=== PATIENT | male | born 1960 | race Caucasian/White ===

== ENCOUNTER 2016-12-28 12:20 | Inpatient (IN) ==
[2016-12-28] MEDS ORDERED: NS 1,000 ML ONE ×2 (12:24→14:00)
[2016-12-28] MEDS ORDERED: NS 1,000 ML IV PRN (12:26)
[2016-12-28] MEDS ORDERED: SODIUM CHLORIDE 0.9% INJ ONE (12:43)
[2016-12-28] MEDS ORDERED: PROTONIX IV ONE (12:43)
[2016-12-28 13:01] LABS: INR 1.09 (0.86-1.15); PROTIME 14.4 Seconds (12.1-15.5)
[2016-12-28 13:02] LABS: PTT PL 24.3 Seconds (22.6-43.9)
[2016-12-28 13:06] LABS: BASO% 0.2 % (0.0-0.8); EOS% 0.4 % (0.0-10.0); HEMATOCRIT 18.2 % (42.0-52.0); IMM GRAN# 0.21 X1000 (0.0-0.04); IMM GRAN% 0.8 % (0.0-0.5); LYMPH# 3.33 X1000 (1.2-3.4); MANUAL DIFF NEEDED? YES; MCH 28.2 PG (27-31); MCHC 31.9 g/dL (33-37); MCV 88.3 FL (81-99); MONO# 1.47 X1000 (0.11-0.59); MONO% 5.8 % (1.7-9.3); MPV 10.6 FL (7.4-10.4); NEUT% 79.8 % (42.2-75.2); PLT 329 X1000 (130-400); RBC 2.06 XMIL (4.7-6.1)
[2016-12-28 13:08] LABS: HEMOGLOBIN 5.8 g/dL (14.0-18.0)
[2016-12-28] MEDS ORDERED: NS 1,000 ML IV ONE ×2 (13:09→16:01)
[2016-12-28 13:25] LABS: LYMPHS 4 % (21-51); MONO 2 % (1-9); NRBC 3 % (0-0)
--- NOTE | 2016-12-28 13:36 | EKG Report ---
Test Performed on : 12/28/2016 12:33:50 PM Test Reason : neck and upper back pain Blood Pressure : / mmHG Vent. Rate : 106 BPM Atrial Rate : 106 BPM P-R Int : 168 ms QRS Dur : 084 ms QT Int : 342 ms P-R-T Axes : 069 049 063 degrees QTc Int : 454 ms Sinus tachycardia. Nonspecific ST abnormality Abnormal ECG No previous ECGs available Unconfirmed Result
[2016-12-28] MEDS: PROTONIX 80 MG in NS 80 ML IV SCH ×2 (14:00→23:28)
[2016-12-28 14:27] LABS: OCCULT BLOOD 1 POSITIVE (NEGATIVE)
--- NOTE | 2016-12-28 14:46 | PROVIDER DOCUMENTATION ---
This chart was entered by Colette Solorzano Scribe, acting as scribe for Matty Rowe CRNP. HPI-General Adult - General Chief Complaint: Abnormal Lab[s] Stated Complaint: DIZZY, WEAKNESS Time Seen by Provider: 12/28/16 12:29 Source: patient Allergies/Adverse Reactions: Patient Allergies Allergy/AdvReac Type Severity Reaction Status Date / Time No Known Allergies Allergy Verified 12/28/16 12:43 Home Medications: Home Medication List Medication Instructions Recorded Confirmed Last Taken Type Amlodipine Besylate [Amlodipine 1 dose 12/28/16 12/28/16 History Besylate] Celecoxib [Celecoxib] 1 dose 12/28/16 Unknown History Losartan/Hydrochlorothiazide 1 dose 12/28/16 Unknown History [Losartan-Hctz 100-25 mg Tab] Methocarbamol [Methocarbamol] 1 dose 12/28/16 Unknown History - History of Present Illness -Gen Adult Nature of Presenting Problems: 56 yo M presents to the ER with complaint of dizziness and weakness x3 days. Went to PCP and he sent him to get lab work, was sent here due to H&H of 5 and 12. States he has had coffee ground emesis. States he takes 6 or more goodie powder and Celebrex daily. Also complains of intermittent neck pain. Review of Systems - Adult - REVIEW OF SYSTEMS - ADULT Constitutional: reports: see HPI. denies: chills, fever, fatique Eyes: reports: see HPI. denies: dry eyes, blurred vision, eye pain Ears, Nose, Mouth & Throat: reports: see HPI. denies: ear pain, nose pain, mouth/dental pain, throat swelling Cardiovascular: reports: see HPI. denies: edema, irregular heart rate, palpitations, syncope Respiratory: reports: see HPI. denies: cough, dyspnea on exertion, shortness of breath, wheezing Gastrointestinal: reports: see HPI, vomiting, other (GI bleeding). denies: diarrhea, nausea Genitourinary: reports: see HPI. denies: dysuria, hematuria, incontinence, urgency Musculoskeletal: reports: see HPI. denies: bone pain, joint pain, muscle aches , neck pain Integumentary: reports: see HPI. denies: hair loss, itching, rash, skin thickening Neurological: reports: see HPI. denies: ataxia, numbness, seizure, tremors Psychiatric: reports: see HPI. denies: anxiety, depression, emotional problems , insomnia, panic attacks, suicidal thoughts Past History - Adult - PAST MEDICAL HISTORY-ADULT Review of Records: reports: Nursing Assessment Review, Medications Reviewed Cardiovascular: reports: HTN - PRIOR SURGERIES/PROCEDURES Surgical/Procedure History: reports: joint replacement - IMMUNIZATION STATUS Childhood Immunizations: See Nurse Assessment Flu Vaccine: See Nurse Assessment Physical Exam-General - PHYSICAL EXAM-ADULT Initial Vital Signs Reviewed: Yes - CONSTITUTIONAL General Appearance: alert, no apparent distress (in trendelenburg position) - EYES Eyes: PERRL/EOMI, pale conjunctivae. negative: pink conjunctivae - HEAD, EARS, NOSE, MOUTH & THROAT HENMT: TMs normal, pharynx normal, other (pale gums) - NECK Neck: supple, normal inspection - RESPIRATORY Respiratory: no respiratory distress, no accessory muscle use - CARDIOVASCULAR Cardiovascular: normal peripheral pulses, tachycardia (bounding) - GASTROINTESTINAL (ABDOMEN) Abdominal Exam: normal bowel sounds, non tender, soft - GENITOURINARY Rectal Exam: normal exam, black stool Hemoccult Exam: heme positive stool - MUSCULOSKELETAL Back Exam: no CVA tenderness, no vertebral tenderness Extremity: normal range of motion, non-tender, normal gait, normal inspection - SKIN Integumentary: warm/dry, pallor - NEUROLOGIC Neurologic: grossly normal, no motor/sensory deficits - PSYCHIATRIC Psych/Mental Status: normal mood/affect, normal thought content, normal thought process, oriented x 3 Progress - PLAN OF CARE/RESULTS Progress/Plan/Lab Results: Vital Signs - 8 hr 12/28/16 12:27 Temperature 97.9 F Pulse Rate 108 H Respiratory Rate 22 Blood Pressure 107/51 O2 Sat by Pulse Oximetry 100 Orders Category Date Time Status Saline Loc DIRECTED Care 12/28/16 12:27 Active CBC WITH ELECTRONIC DIFF [HEME] Stat Lab 12/28/16 12:27 Ordered COMPREHENSIVE METABOLIC PANEL [CHEM] Stat Lab 12/28/16 12:27 Ordered OCCULT BLOOD NON-FECES PL Stat Lab 12/28/16 12:27 Uncollected OCCULT BLOOD SCREEN STOOL PL Stat Lab 12/28/16 12:27 Uncollected PROTIME WITH INR PL [COAG] Stat Lab 12/28/16 12:[address] [COAG] Stat Lab 12/28/16 12:35 Received TYPE & SCREEN [BBK] Stat Lab 12/28/16 12:27 Ordered 0.9% Sodium Chloride Inj [Ns] 1,000 ml Med 12/28/16 12:24 Discontinued .ROUTE As Directed 0.9% Sodium Chloride Inj [Ns] 1,000 ml Med 12/28/16 12:26 Active IV 125 mls/hr Pantoprazole [Protonix] Med 12/28/16 12:43 Once 40 mg IV NOW ONE Sodium Chloride 0.9% Med 12/28/16 12:43 Once 10 ml INJ NOW ONE Discussed results and plan of care with patient. Patient agrees with plan and verbalizes understanding. Result Diagrams: 12/28/16 12:35 - EKG 1 Time of EKG reading by physician:: 12:33 EKG Read and Signed by:: Walt Crowley EKG Interpretation (*Must complete 3 of following elements*): Abnormal Rate: 106 Rhythm: sinus tach [place]: normal QRS: normal CA Interval: normal ST Wave: non-specific ST changes 2 Time of EKG reading by physician:: 14:40 EKG Read and Signed by:: Walt Crowley EKG Interpretation (*Must complete 3 of following elements*): Normal Rate: 85 Rhythm: normal sinus rhythm [place]: normal QRS: normal CA Interval: normal ST Wave: normal - XRAY 1 XRAY Study: Chest XRAY Interpretation: TAISHA (Merle) - CONSULTS/PCP/HOSPITALIST Notification #1 *Consult/PCP/Hospitalist*: Dr. Altman Time Discussed: 13:47 Reason/Comments: Admission Consult Disposition: Will see in ED (Dr. Altman will see patient in ED for transfer to [facility].) Departure - Departure Date of Disposition Decision: 12/28/16 Time of Disposition Decision: 13:50 DIAGNOSIS: GI bleed due to NSAIDs Disposition: ADMITTED INPATIENT 09 Certified Medical Emergency: Emergent Condition: Stable - Critical Care Note This patient required my direct & personal management of CC.: Yes Total Time (mins): 35 Critical Care Statement: This patient required my direct personal management to treat or rule out processes, the absence of which, could potentiallly result in sudden, clinically significant life or limb threatening deterioration. Attestation - Physician/ RAJAT Attestation Patient care was provided by Advanced Practice Provider:: Yes Advanced Practice Provider:: Matty Rowe (The physician is on site and available for consultation but did not have face to face contact with the patient. ) Advanced Practice Provider documentation review:: The Mid-level provider documentation, treatment plan and medical decision making was reviewed by the physician who agrees with all treatment and medical decision making by the MLP. This chart was documented by the indicated scribe, (Colette Solorzano Scribe) and accurately reflects the services I performed and decisions made by me, Matty Rwoe CRNP, as attested by the provider's signature.
[2016-12-28 15:30] LABS: AGAP 16; ALBUMIN 3.5 g/dL (3.5-5.0); ALKALINE PHOSPHATASE 63 U/L (32-122); AMYLASE 60 U/L (20-200); BUN 44 mg/dL (8-22); CALCIUM 9.2 mg/dL (8.8-10.2); CHLORIDE 100 mmol/L (98-107); COSMO 286; GOT 20 U/L (10-34); GPT 13 U/L (10-44); LIPASE 71 U/L (13-60); POTASSIUM 4.2 mmol/L (3.5-5.1); SODIUM 135 mmol/L (136-145); TCO2 20 mmol/L (25-35); TOTAL PROTEIN 5.9 g/dL (6.3-8.3)
--- NOTE | 2016-12-28 15:34 | EKG Report ---
Test Performed on : 12/28/2016 2:40:05 PM Test Reason : neck/back pain Blood Pressure : / mmHG Vent. Rate : 085 BPM Atrial Rate : 085 BPM P-R Int : 176 ms QRS Dur : 088 ms QT Int : 364 ms P-R-T Axes : 070 053 061 degrees QTc Int : 433 ms Normal sinus rhythm. Normal ECG When compared with ECG of 28-DEC-2016 12:33, (Unconfirmed) No significant change was found Confirmed by Felix Nuñez MD ([id number]) on 12/29/2016 8:34:52 AM
[2016-12-28] MEDS ORDERED: TYLENOL PO PRN (16:01)
--- NOTE | 2016-12-28 16:36 | Diag Imaging Result Doc PS360 ---
ANGIOGRAM/THORAX - 12/28/2016 INDICATION: neck and upper back pain TECHNIQUE: Axial CT images were obtained after administering intravenous contrast. Coronal MIP images were generated. A CT dose reduction protocol was used. COMPARISON: None FINDINGS: There appear to be some nonobstructing stones in the upper pole the left kidney measuring up to 4 mm. Otherwise the upper abdomen is unremarkable. Heart and size is normal with no pericardial effusion. No adenopathy. The thoracic aorta is normal. Ascending aorta measures 3.8 cm. The distal aortic arch measures 2.8 cm. The descending thoracic aorta measures 2.4 cm. There is note of some substantial focal, noncalcified plaque in the origin of the left subclavian artery. This causes moderate, about 50% stenosis. The other great vessels are patent and normal in anatomy. There is a calcified granuloma in the right lower lobe and calcified granulomas in the right hilum. There is early COPD as well. There is rather advanced spondylosis throughout the spine. There is also extremely advanced degeneration at the costovertebral junctions of the 10th ribs bilaterally. No acute fractures. IMPRESSION: 1. Atherosclerotic narrowing of the proximal left subclavian artery origin. Please note this places the patient at risk for subclavian steal syndrome. 2. Very early COPD changes. 3. Coronary artery disease. 4. Left nephrolithiasis. Electronically signed by Reji Guevara 12/28/2016 4:34 PM
--- NOTE | 2016-12-28 19:33 | Diag Imaging Result Doc PS360 ---
EXAM: ABDOMEN FLAT/UPRIGHT INDICATION: abd TECHNIQUE: 3 views COMPARISON: None. FINDINGS: There are unremarkable bowel gas and stool patterns. There is no obstructive bowel pattern. There is no evidence of large volume free abdominal gas. There is a calcific density that projects over the right kidney suggesting possible nephrolithiasis. Contrast media in the urinary bladder from a recent CT. Metallic coils projected pelvis. There is lumbar spine spondylosis. IMPRESSION: Possible right nephrolithiasis. Essentially unremarkable, otherwise. Electronically signed by Gautam Chambers 12/28/2016 7:30 PM
[2016-12-28 19:50] LABS: HEMATOCRIT 18.1 % (42.0-52.0); HEMOGLOBIN 5.7 g/dL (14.0-18.0)
[2016-12-28] MEDS: MORPHINE IV PRN (21:03)
[2016-12-28] MEDS ORDERED: NS 500 ML IV ONE (22:01)
[2016-12-28 22:10] LABS: BE -4.9 mmoll (-2.0-2.0); BLOOD TYPE VENOUS; PCO2(98.6) 21 mmHg (40-60); PO2(98.6) 154 mmHg (30-55); SAMPLE BLOOD; SAO2 96.4 % (40.0-85.0); pH(98.6) 7.53 (7.32-7.43)
[2016-12-28 22:15] LABS: BASO% 0.4 % (0.0-0.8); EOS# 0.03 X1000 (0.0-0.7); EOS% 0.1 % (0.0-10.0); HEMATOCRIT 15.3 % (42.0-52.0); IMM GRAN# 0.28 X1000 (0.0-0.04); IMM GRAN% 1.2 % (0.0-0.5); LYMPH# 4.85 X1000 (1.2-3.4); LYMPH% 20.6 % (20.5-51.1); MANUAL DIFF NEEDED? YES; MCH 28.2 PG (27-31); MCHC 31.4 g/dL (33-37); MONO% 9.8 % (1.7-9.3); MPV 9.9 FL (7.4-10.4); NEUT% 67.9 % (42.2-75.2); PLT 313 X1000 (130-400)
[2016-12-28] MEDS ORDERED: ZOSYN 3.375 GM/NS 3.375 GM/50 ML IVPB IV SCH (22:15)
[2016-12-28 22:17] LABS: HEMOGLOBIN 4.8 g/dL (14.0-18.0)
[2016-12-28] MEDS ORDERED: NS ONE ×2 (22:30)
--- NOTE | 2016-12-28 22:30 | Diag Imaging Result Doc PS360 ---
EXAM: CHEST/ABD TUBE PLACEMENT HISTORY: NG Tube Placement TECHNIQUE: Chest abdomen COMPARISON: None. FINDINGS: There is a nasogastric tube overlying the esophagus and stomach. No free air beneath the diaphragm. The lung bases are clear. IMPRESSION: Nasogastric tube enters the stomach. Electronically signed by Keon Apodaca 12/28/2016 10:28 PM
[2016-12-28 22:55] LABS: AGAP 18; BUN 43 mg/dL (8-22); CALCIUM 7.6 mg/dL (8.8-10.2); CHLORIDE 103 mmol/L (98-107); CK PROFILE 61 U/L (24-204); COSMO 293; MAGNESIUM 1.9 mg/dL (1.5-2.7); POTASSIUM 3.7 mmol/L (3.5-5.1); SODIUM 137 mmol/L (136-145); TCO2 16 mmol/L (25-35)
[2016-12-28 23:11] LABS: BANDS 2 % (0-1); LYMPHS 21 % (21-51); MONO 3 % (1-9); NRBC 3 % (0-0)
[2016-12-28 23:13] LABS: POLYCHROM 1+
[2016-12-28 23:14] LABS: HYPOCHROM OCCASIONAL
[2016-12-28 23:15] LABS: TARGET CELLS OCCASIONAL
[2016-12-28] MEDS: ZOSYN 4.5 GM/NS 4.5 GM/100 ML IVPB IV SCH (23:27)
[2016-12-28] MEDS ORDERED: DIPRIVAN 1% ONE (23:35)
[2016-12-28] MEDS ORDERED: QUELICIN (DOSE) ONE (23:38)
[2016-12-28] MEDS ORDERED: XYLOCAINE-MPF 2% ONE (23:38)
[2016-12-29] MEDS ORDERED: NEO-SYNEPHRINE ONE (00:51)
[2016-12-29 00:55] LABS: URINE CULTURE NEEDED? NO; URINE MICRO REVIEW NEEDED? NO; URINE SOURCE CATH
[2016-12-29 01:00] LABS: IRON SATURATION 25 %; TIBC 255 ug/dL; TOTAL IRON 63 ug/dL (53-167); UNBOUND IRON 192 ug/dL (112-346)
[2016-12-29 01:04] LABS: BILIRUBIN URINE NEGATIVE (NEGATIVE); BLOOD URINE NEGATIVE (NEGATIVE); COLOR YELLOW; GLUCOSE URINE NEGATIVE (NEGATIVE); LEUKOCYTES URINE NEGATIVE (NEGATIVE); NITRITE URINE NEGATIVE (NEGATIVE); PH URINE 5.5; PROTEIN URINE TRACE mg/dL (NEGATIVE); SP GRAVITY URINE 1.035; TURBIDITY URINE CLEAR (CLEAR); UROBILINOGEN URINE NORMAL (NORMAL)
[2016-12-29 01:06] LABS: UR EPITHELIAL CELLS <10 /HPF (<10); URINE BACTERIA NEGATIVE /HPF; URINE RBC <10 /HPF (<10); URINE WBC <10 /HPF (<10)
[2016-12-29 01:18] LABS: FERRITIN 18 ng/mL (30-400)
[2016-12-29 01:24] LABS: UR AMPHETAMINES QUAL NONE DETECTED (NONE DETECT); UR BARBITUATES QUAL NONE DETECTED (NONE DETECT); UR BENZODIAZEPIN QUAL NONE DETECTED (NONE DETECT); UR CANNABINOIDS QUAL NONE DETECTED (NONE DETECT); UR COCAINE QUAL NONE DETECTED (NONE DETECT); UR METHADONE QUAL NONE DETECTED (NONE DETECT); UR OPIATES QUAL PRESUMPTIVE POSITIVE (NONE DETECT); UR OXYCODONE QUAL NONE DETECTED (NONE DETECT); UR PCP QUAL NONE DETECTED (NONE DETECT)
[2016-12-29] MEDS ORDERED: EPINEPHRINE SYRINGE ONE (02:04)
[2016-12-29] MEDS: ZOFRAN IV PRN ×4 (02:28→22:41)
[2016-12-29 02:51] LABS: HEMATOCRIT 21.7 % (42.0-52.0)
[2016-12-29] MEDS: ZOSYN 4.5 GM/NS 4.5 GM/100 ML IVPB IV SCH ×5 (04:36→21:58)
[2016-12-29] MEDS: MORPHINE IV PRN ×5 (05:21→21:38)
[2016-12-29 06:19] LABS: AGAP 12; BUN 36 mg/dL (8-22); CHLORIDE 112 mmol/L (98-107); COSMO 294; SODIUM 143 mmol/L (136-145); TCO2 19 mmol/L (25-35)
[2016-12-29 06:32] LABS: CALCIUM 7.7 mg/dL (8.8-10.2)
--- NOTE | 2016-12-29 06:54 | EKG Report ---
Test Performed on : 12/28/2016 9:56:06 PM Test Reason : Seizure Blood Pressure : / mmHG Vent. Rate : 118 BPM Atrial Rate : 118 BPM P-R Int : 172 ms QRS Dur : 088 ms QT Int : 336 ms P-R-T Axes : 068 056 065 degrees QTc Int : 470 ms Sinus tachycardia. Otherwise normal ECG No previous ECGs available Confirmed by Felix Nuñez MD ([id number]) on 12/29/2016 8:35:00 AM
--- NOTE | 2016-12-29 06:59 | HISTORY AND PHYSICAL ---
CHIEF COMPLAINT: Weakness, dizziness. HISTORY OF PRESENT ILLNESS: This is a 56-year-old male with a history of hypertension, presenting with dizziness and weakness for 3 days. He was sent by his PCP who had done screening lab work, found out that his hemoglobin and hematocrit were low, and advised him to go to the ER. He denies any larry hematochezia but he does have melena visualized on exam. He also had some coffee- grounds emesis. He does downplay than he has any bright red bleeding or any history of peptic ulcer disease or otherwise. Patient does use NSAIDs regularly, up to 6 Goody Powders a day for arthritis type pain. He is also on Celebrex. Complaining of intermittent neck pain. He denies abdominal pain. Denies nausea or vomiting, although he did report coffee-grounds emesis. The patient came in for evaluation. He was found to be heme-positive. Rectal exam revealed dark stool, black. His hemoglobin and hematocrit were 5 and 13. He was admitted for acute GI bleed and hemorrhagic anemia associated with hemorrhage. Of note, patient does not feel like this is what is contributing to his issues. The patient was hypotensive and orthostatic every time he stood up, including the time I evaluated him. His blood pressure dropped into the 70s after standing. He did respond to fluid bolus. There was no gross bleeding noted in the ER besides the rectal exam. PAST MEDICAL HISTORY: Hypertension. PAST SURGICAL HISTORY: Denies. FAMILY HISTORY: Reviewed and noncontributory. SOCIAL HISTORY: No tobacco or ethanol. ALLERGIES: Reports no known drug allergies. MEDICATIONS: He is on amlodipine, Celebrex, losartan/hydrochlorothiazide 100/25, Soma p.r.n. REVIEW OF SYSTEMS: Otherwise negative, reviewed x10 systems. PHYSICAL EXAMINATION: VITAL SIGNS: Blood pressure 90/51. When I saw him, it was 135/76, heart rate was in the 90s, respiratory rate of 20, temperature 98.2 degrees. GENERAL: Well-developed male, in no acute distress. HEAD: Normocephalic, atraumatic. The patient was pale. EYES: Pupils equal, round, reactive to light. Pale conjunctivae. NECK: Supple. CARDIOVASCULAR: Tachycardic. PULMONARY: Clear to auscultation. GI: Soft, nontender, nondistended. Bowel sounds were positive. He did admit to some intermittent cramping in his lower quadrants. EXTREMITIES: No clubbing or cyanosis. LYMPHATICS: No peripheral edema. NEUROLOGICAL: Examination was nonfocal. LABORATORY DATA: Hemoglobin and hematocrit are 4.8 and 15, white count 23,000, platelets normal. Coagulations normal. Blood gas unremarkable. Venous lactate 5.3. Sodium 135, BUN 44, creatinine 1.1. Troponin was negative. Lipase was mildly elevated. Hemoccult positive. ASSESSMENT: This is a 56-year-old male who presented with acute gastrointestinal bleed and symptomatic anemia. 1. Acute gastrointestinal bleed, likely upper based on the melena and hematemesis, hemoglobin and hematocrit, is obviously symptomatic. We will transfuse. Continue hydration. Monitor in intensive care unit because he has an orthostatic upper gastrointestinal bleed with a high risk of morbidity and mortality. Obviously, nonsteroidal anti-inflammatory drugs are a major contributor to his blood loss. Interestingly enough, the patient just does not feel that this is an appropriate diagnosis for what is going on with him. We will place him on intravenous proton pump inhibitor. I have contacted Dr. Catalan. He will evaluate for endoscopy which he will need in the next 12-24 hours. Subsequently, symptomatic anemia. We will get iron studies and follow closely. 2. Hypertension. He is obviously hypotensive. We will hold his medications. His azotemia, again I think it is more consistent with an gastrointestinal bleed. DISPOSITION: The patient is critically ill. We will monitor. Pending endoscopy findings, we will hopefully pursue those in next again 24 hours. cc: MD Jean Hobbs MD
[2016-12-29 08:08] LABS: HEMATOCRIT 23.3 % (42.0-52.0); HEMOGLOBIN 7.7 g/dL (14.0-18.0); MCH 29.8 PG (27-31); MCV 90.3 FL (81-99); MPV 9.8 FL (7.4-10.4); RBC 2.58 XMIL (4.7-6.1)
[2016-12-29] MEDS: PROTONIX 80 MG in NS 80 ML IV SCH ×2 (10:11→22:21)
[2016-12-29] MEDS ORDERED: LASIX IV SCH (11:00)
[2016-12-29] MEDS: NS 1,000 ML IV SCH (11:38)
--- NOTE | 2016-12-29 13:02 | Diag Imaging Result Doc PS360 ---
EXAM: US ABDOMEN-COMPLETE INDICATION: abdominal pain COMPARISON: None. FINDINGS: The gallbladder appears normal with no stones, wall thickening, or pericholecystic fluid. The common bile duct is normal in diameter. Sonographic Agosto's sign was reported to be negative. The liver is perhaps slightly echogenic which could indicate mild hepatic steatosis. It is mildly prominent measuring up to 18 cm in length. Portal venous flow is hepatopedal. The pancreas is largely obscured. The limited visualized portion is grossly unremarkable. The aorta and IVC are grossly unremarkable. The spleen is unremarkable. The kidneys are grossly unremarkable. IMPRESSION: Mildly prominent liver with questionable mild hepatic steatosis. Electronically signed by Gautam Chambers 12/29/2016 12:59 PM
[2016-12-29] MEDS: CARAFATE LIQUID PO SCH ×2 (14:39→19:27)
[2016-12-29] MEDS: CENTRUM SILVER PO SCH (14:39)
[2016-12-29] MEDS: ICAR-C PO SCH ×2 (14:39→21:10)
[2016-12-29] MEDS ORDERED: VITAMIN K 10 MG in NS 50 ML IV ONE (15:00)
--- NOTE | 2016-12-29 16:45 | PROGRESS NOTE ---
DATE: 12/29/2016 SUBJECTIVE: The patient currently resting in bed. He denies any nausea, vomiting, or vomiting blood today. His last episode of vomiting blood was last night before the EGD. The patient came in yesterday with feeling weak and dizzy and positive Hemoccult. He started throwing up blood in the ICU. He underwent EGD emergently last night with Dr. Catalan and there was evidence of a large duodenal ulcer with a visible vessel which was injected and cauterized. He has so far received 6 units of blood transfusion. His hematocrit stays low at 23%. Surgery consultation has been called by Dr. Tracy. He has not had any bowel movements today. He has a start on a full liquid diet per Dr. Catalan today. He continues on Protonix drip. He denies having abdominal pain, fevers, rigors, chills. He has been using Goody powders, about 6 of them a day for many years for arthritis. His last colonoscopy was done by Dr. Hill 2 years ago and according to him was normal. OBJECTIVE: Vital signs: Temperature of 97.4 degrees, pulse of 76, respiratory rate 18, blood pressure 173/65, saturating 99% on room air. General Appearance: Obese, lying in bed, in no acute distress. HEENT: Pale conjunctivae. No icterus. Pupils equal, reactive to light and accommodation. Neck: Supple. Abdomen: Obese, soft, nontender, nondistended. Bowel sounds heard. No guarding or rebound. Extremities: No cyanosis, clubbing, edema. Neurologic: Alert, awake, oriented x3. LABORATORY: Hemoglobin and hematocrit is 7.7 and 23.3, white count of 20.81. Platelet count of 241,000. Sodium 142, potassium 4, chloride 112, bicarb 19, anion gap of 12, BUN of 36, creatinine 0.7, glucose of 114, calcium 7.7. Lipase of 71. B12 194. Urinalysis showing trace protein, and stool occult blood was positive. Urine toxicology screen positive for opioids. IMAGING: He had ultrasound of the abdomen done which showed mildly prominent liver with questionable mild hepatic steatosis. IMPRESSION AND PLAN: 1. Major upper gastrointestinal bleed secondary to duodenal ulcer with visible vessel secondary to nonsteroidal antiinflammatory drugs abuse. The patient is counseled to quit using nonsteroidal antiinflammatory drugs completely. His last use of Goody Powder was 2 days ago. We will continue on Protonix drip for 72 hours and switch him to Protonix twice daily. After that, on discharge he will continue be on Protonix twice daily for 3 months. He will be on Carafate 1 g every 6 hours for 4 weeks. 2. Chronic tobacco abuse. The patient was counseled to quit tobacco completely. 3. Obesity. Patient will need to lose weight. This will be addressed once he is stable. 4. Surgery consult has been called. He may need surgery if he has recurrence of gastrointestinal bleeding or he continues to drop hematocrit despite transfusion. 5. We will start him on Carafate 1 g every 6 hours. 6. Gastrointestinal prophylaxis as above with proton pump inhibitor. 7. Bowel regimen. We will start Rosa Elena-Colace as needed. 8. Anemia. We will start him on Iron C b.i.d. and multivitamin once daily. Since he has received 6 units of blood transfusion, we will give him a dose of vitamin K. 9. Further recommendations to follow pending hospital course. cc: MD Shaed Caldwell MD Kenneth E. Mashburn, MD Lynn R. Buckner, MD MTDD
--- NOTE | 2016-12-29 16:47 | PROGRESS NOTE ---
DATE: 12/29/2016 SUBJECTIVE: The patient's GI bleed continued to progress significantly last night and actually had to have an endoscopy done in the middle of the night, showing significant duodenal ulcer and EGD was accomplished I believe by Dr. Catalan, it looks like it may have been Dr. Hall. In any case, bleeding was controlled and ultimately had 5 units of blood over night. Has not have further bleeding. OBJECTIVE: Vital signs: Blood pressure 173/65, heart rate 76, respiratory rate 18, temperature 97.4 degrees, 99% on room air. Cardiovascular: Regular rate and rhythm. Pulmonary: Bilateral breath sounds. Clear to auscultation. GI: Soft, nontender, nondistended. Bowel sounds are positive. LABORATORY DATA: Hemoglobin and hematocrit this morning are 7.7 and 23, white count down to 20.8, platelets were normal. Chemistries: BUN is down to 36, calcium 7.7. B12 and folate levels were normal. Ferritin was low. The rest of the iron studies were unremarkable. PROBLEM LIST: 1. Acute gastrointestinal bleed secondary to duodenal ulcer. We will continue to follow. GI is monitoring. Hemoglobin and hematocrit were still somewhat low this morning. I gave another unit, that will be a total of 6 units with his bleeding episode, but I do not think it is persistently bleeding. Surgery has been consulted for other reasons but obviously if there is any further bleeding we may have to entertain surgical management. Dr. Tracy has been consulted. 2. Subclavian stenosis, 50%. This will need to be addressed. Obviously he is not really able to get a stent or anything at this point because he cannot get any antiplatelet medications. 3. Hypertension. His blood pressure has stabilized. He did not require pressors. He seems to be doing okay. 4. Disposition. Although I think his acute bleeding episode is under control, I think we will still need to monitor in case there are any other significant bleeding issues. He will need PPI at least I think for 72 hours if there was a visible vessel. cc: Shade Altman MD
[2016-12-29 16:59] LABS: HEMATOCRIT 25.7 % (42.0-52.0); HEMOGLOBIN 8.4 g/dL (14.0-18.0)
--- NOTE | 2016-12-29 18:52 | CONSULTATION ---
DATE OF CONSULTATION: 12/28/2016 REASON FOR CONSULTATION: GI bleed. HISTORY OF PRESENT ILLNESS: A 52-year-old gentleman in his usual health, has been having some dark stools and feeling weak 3-4 days. Prior to admission went to the [place] ER and was found to be profoundly anemic. He was given a unit of blood and transferred to the ICU at [facility] for further evaluation. He had heme-positive stool with melenic stools. Hematocrit was low at 13 before any transfusion. He never had a GI bleed. He does take a lot of Goody powders. PAST MEDICAL HISTORY: Hypertension. PAST SURGICAL HISTORY: None. FAMILY HISTORY: Negative. SOCIAL HISTORY: He does smoke. He does not drink. ALLERGIES: He has no allergies. MEDICATION: He is on Celebrex, hydrochlorothiazide, Soma, Goody powders, amlodipine. REVIEW OF SYSTEMS: Negative other than profound weakness and lightheadedness. PHYSICAL EXAMINATION: General: Revealed a pleasant gentleman. Vital signs: Orthostatic blood pressure 90/51. After the fluid bolus it came to 130/70 with a heart rate 90s, temperature 98.2 degrees. General: Alert male who looks weak. HEENT: No scleral icterus. Marked conjunctival pallor. Neck: Supple. Heart: Normal first and second heart sounds. Lungs: Clear. Abdomen: Soft. Nontender. Bowel sounds are hyperactive. Extremities: No clubbing, cyanosis. Neurological: Negative. LABORATORY DATA: 4.8 hemoglobin. Hematocrit 15. Platelet count normal. BUN high at 44.2, creatinine 1.1. Heme positive. IMPRESSION: 1. Acute gastrointestinal blood loss. 2. Anemia secondary to #1. 3. Possible nonsteroidal gastropathy. 4. Hypotension secondary to #1. RECOMMENDATION: Patient needs to be stabilized. We will transfuse a total of at least 4 units until he is stable. It appears that he is not aggressively bleeding, but we will watch him closely. I have instructed the nurses to call me with repeat hematocrits after transfusion and we will follow him closely during the 1st few hours of admission. cc: Radha Catalan MD
--- NOTE | 2016-12-29 18:53 | OPERATIVE NOTE ---
PROCEDURE DATE: 12/29/2016 TIME: 2:00 a.m. PROCEDURE: Esophagogastroduodenoscopy with injection therapy and heater probe coagulation under endotracheal intubation and general anesthesia. PREOPERATIVE DIAGNOSE: Gastrointestinal bleeding. POSTOPERATIVE DIAGNOSES: Large bulbar ulcer with exposed vessel, large, likely duodenal branch of the gastroduodenal with adherent clot, cauterized. OPERATION IN DETAIL: After informed consent, patient was intubated by Dr. Lopez in [facility]. After patient airway is protected, a double-channel gastroscope introduced. All the clots were removed and the stomach was lavaged. At this point, the scope introduced in the duodenum. Patient had a large adherent clot in the bulb. At this point, carefully, I started cauterizing the edge of the clot. Because of possible size of the blood vessel and may be exacerbating his bleed, all this area was injected with epinephrine. Slowly the clot was removed and the exposed blood vessel was identified. At the moment from epinephrine the blood vessel is retracted. At this point, the cautery was begun and it was slowly cauterized around the edges to the center until there was perfect coagulum was reached. At the end of the procedure, there were no signs of bleeding. At this point, the area was vigorously lavaged and there was no sign of any residual bleeding. The patient tolerated the procedure well without any immediate complications and recovered well. -0 cc: MD Radha Sanchez MD
[2016-12-29 23:24] LABS: HEMATOCRIT 23.4 % (42.0-52.0); HEMOGLOBIN 7.7 g/dL (14.0-18.0)
[2016-12-30] MEDS: MORPHINE IV PRN ×6 (01:34→22:33)
[2016-12-30] MEDS: CARAFATE LIQUID PO SCH ×4 (01:38→21:08)
[2016-12-30] MEDS: NS 1,000 ML IV SCH ×2 (01:39→07:22)
[2016-12-30 03:15] LABS: HEMATOCRIT 22.2 % (42.0-52.0); HEMOGLOBIN 7.3 g/dL (14.0-18.0)
[2016-12-30] MEDS: ZOSYN 4.5 GM/NS 4.5 GM/100 ML IVPB IV SCH ×4 (04:24→22:32)
--- NOTE | 2016-12-30 06:27 | CONSULTATION ---
DATE OF CONSULTATION: 12/29/2016 HISTORY OF PRESENT ILLNESS: Mr. Vikash Lopez is a 56-year-old white male who was transferred to [facility] yesterday evening with a GI bleed. He began vomiting blood early this morning and underwent an EGD per Dr. Catalan urgently which showed a duodenal ulcer with a visible vessel. This was cauterized and also injected per Dr. Catalan and he has had no clinical evidence of bleeding since that procedure. He remains in the ICU. He is hemodynamically stable. He has received a total of 6 units of packed red blood cells. He is on IV PPI. cc: Merly Tracy MD
[2016-12-30] MEDS: CENTRUM SILVER PO SCH (08:15)
[2016-12-30] MEDS: ICAR-C PO SCH ×2 (08:15→21:08)
[2016-12-30] MEDS: PROTONIX 80 MG in NS 80 ML IV SCH ×2 (09:05→21:06)
--- NOTE | 2016-12-30 13:10 | PROGRESS NOTE ---
DATE: 12/30/2016 SUBJECTIVE: This patient states that he is feeling better. He is not complaining of chest pain or shortness of breath. No belly pain either. He has not had any bowel movement, but he is passing gas. His hemoglobin dropped a little bit, from 7.7 to 7.3. I will continue to monitor. This patient's vital signs are stable. I will transfer this patient to the medical floor. OBJECTIVE: Vital Signs: Temperature 97.6 degrees, pulse 79, respiratory rate 13, blood pressure on the monitor 135/87, oxygen saturation 98% on room air. HEENT: Head normocephalic. No trauma. PERRLA. Skin: Pale. Neck: Supple. No JVD. No masses. Central trachea. Cardiovascular: RRR. Chest: Clear to auscultation. No wheezing. No rales. Abdomen: Soft, nontender, nondistended. No hepatosplenomegaly. Positive bowel sounds. Extremities: No edema. No clubbing. No cyanosis. Neurologic: The patient is alert and oriented x3. No focal neurological deficits. LABORATORY: Hemoglobin 7.3, hematocrit 22.2. ASSESSMENT AND PLAN: 1. Acute gastrointestinal bleed secondary to duodenal ulcer. Hemoglobin dropped a little bit from, 7.7 to 7.3. So far, he received a total of 6 units of PRBCs. Gastroenterology Department and Surgery Department are on board. 2. Subclavian stenosis of around 50%. This will need to be addressed probably in the future. He cannot get any antiplatelet medication right now because of his gastrointestinal bleed. Surgery Department on board. 3. Hypertension. Continue to monitor. Continue with the same management. 4. Anemia, likely secondary to acute blood loss. We will continue to monitor. We will transfuse as needed. 5. Disposition: I will transfer this patient to the medical floor with telemetry. I will continue monitoring the hemoglobin and hematocrit. Vital signs are stable. I will ask for physical therapy. This patient is tolerating p.o. He is on a GI soft diet. cc: Clif Yang MD
--- NOTE | 2016-12-30 15:22 | PROGRESS NOTE ---
DATE: 12/30/2016 SUBJECTIVE: Patient is currently resting in bed. His is present at bedside. He denies any nausea, vomiting, or vomiting blood. He denies any blood in the stools. He has not had a bowel movement since admission. He denies any fevers, rigors, chills. He has so far received 6 units of blood transfusion. His hematocrit is still low but stable. He was evaluated by Dr. Tracy who suggested conservative management and repeat endoscopy in case of rebleeding. OBJECTIVE: Vital signs: Temperature 97.7, pulse rate of 70, respiratory rate 18, blood pressure 125/60, saturating 100% room air. Body weight of 288 pounds 3.2 ounces, BMI of 37 kg/m2. General Appearance: Obese, lying in bed, in no acute distress. HEENT: Pale conjunctivae. No icterus. Neck: Supple. Abdomen: Obese, soft, nontender, nondistended. Bowel sounds noted. No rebound. Extremities: No cyanosis, clubbing, edema. Neurologic: He is alert, awake, oriented. LABS: Hemoglobin and hematocrit are 7.3 and 22.2. His other labs were not drawn. ASSESSMENT AND PLAN: 1. Major upper gastrointestinal bleed secondary to duodenal ulcer with visible vessel secondary to nonsteroidal anti-inflammatory drug abuse. The patient was again counseled to quit using Goody Powder and BC Powder completely. He will continue on Protonix drip for now and tomorrow we will switch him to Protonix twice daily. On discharge he will need to be on Protonix twice daily for 3 months. He will also be given Carafate 1 g every 6 hours for 4 weeks. Will repeat an EGD in 3 months to document healing of the ulcer. 2. Chronic tobacco abuse. Patient counseled to quit tobacco completely. 3. Obesity. Patient also needs to lose weight. This was discussed with the family and the patient. 4. We appreciate Dr. Tracy's consultation. If the patient has another recurrence of GI bleeding then patient may need surgical intervention. 5. Gastrointestinal prophylaxis as above with PPIs. As a bowel regimen we will start on Rosa Elena- Colace as needed. 6. Anemia. Will start him on Iron C b.i.d. and MVI once daily. 7. The above plan was discussed with the patient and family at bedside. All questions were answered. cc: MD Jean Caldwell MD Alexis R. Penot, MD Lynn R. Buckner, MD [facility]ENTER[facility]
[2016-12-30 20:51] LABS: MANUAL DIFF NEEDED? NO
[2016-12-30 21:00] LABS: BASO% 0.3 % (0.0-0.8); EOS# 0.04 X1000 (0.0-0.7); EOS% 0.3 % (0.0-10.0); HEMATOCRIT 22.5 % (42.0-52.0); HEMOGLOBIN 7.3 g/dL (14.0-18.0); IMM GRAN# 0.09 X1000 (0.0-0.04); IMM GRAN% 0.8 % (0.0-0.5); LYMPH# 2.01 X1000 (1.2-3.4); LYMPH% 17.4 % (20.5-51.1); MCH 29.4 PG (27-31); MCHC 32.4 g/dL (33-37); MCV 90.7 FL (81-99); MONO# 0.78 X1000 (0.11-0.59); MONO% 6.8 % (1.7-9.3); MPV 8.8 FL (7.4-10.4); NEUT% 74.4 % (42.2-75.2); PLT 262 X1000 (130-400); RBC 2.48 XMIL (4.7-6.1)
[2016-12-31] MEDS: PROTONIX 80 MG in NS 80 ML IV SCH ×3 (02:20→12:00)
[2016-12-31] MEDS: CARAFATE LIQUID PO SCH ×2 (02:33→09:50)
[2016-12-31] MEDS: MORPHINE IV PRN ×2 (02:34→06:53)
[2016-12-31] MEDS: ZOSYN 4.5 GM/NS 4.5 GM/100 ML IVPB IV SCH ×2 (04:32→09:50)
[2016-12-31 06:24] LABS: AGAP 8; BUN 11 mg/dL (8-22); CALCIUM 8.2 mg/dL (8.8-10.2); CHLORIDE 104 mmol/L (98-107); COSMO 279; POTASSIUM 3.1 mmol/L (3.5-5.1); SODIUM 140 mmol/L (136-145); TCO2 28 mmol/L (25-35)
[2016-12-31] MEDS ORDERED: KLOR-CON PO ONE (07:38)
[2016-12-31 07:59] LABS: MANUAL DIFF NEEDED? NO
[2016-12-31 08:14] LABS: BASO% 0.2 % (0.0-0.8); EOS# 0.09 X1000 (0.0-0.7); EOS% 0.9 % (0.0-10.0); HEMATOCRIT 22.4 % (42.0-52.0); HEMOGLOBIN 7.1 g/dL (14.0-18.0); IMM GRAN# 0.06 X1000 (0.0-0.04); IMM GRAN% 0.6 % (0.0-0.5); LYMPH# 1.37 X1000 (1.2-3.4); LYMPH% 14.1 % (20.5-51.1); MCHC 31.7 g/dL (33-37); MCV 91.4 FL (81-99); MONO# 0.68 X1000 (0.11-0.59); MPV 9.7 FL (7.4-10.4); NEUT% 77.2 % (42.2-75.2); PLT 283 X1000 (130-400); RBC 2.45 XMIL (4.7-6.1)
[2016-12-31 08:21] VITALS: BP 114/67
[2016-12-31] MEDS ORDERED: SODIUM CHLORIDE 0.9% 0 ML ONE (09:29)
[2016-12-31] MEDS: CENTRUM SILVER PO SCH (09:50)
[2016-12-31] MEDS: ICAR-C PO SCH (09:50)
[2016-12-31] MEDS ORDERED: NS 500 ML ONE (10:13)
[2016-12-31] MEDS ORDERED: NORCO-10 PO PRN (11:28)
[2016-12-31] MEDS ORDERED: CARAFATE PO SCH (13:00)
[2016-12-31] MEDS ORDERED: PROTONIX IV SCH (13:48)
[2016-12-31] MEDS ORDERED: PRILOSEC PO SCH (21:00)
--- NOTE | 2017-01-01 13:53 | DISCHARGE SUMMARY ---
ADMISSION DATE: 12/28/2016 DISCHARGE DATE: 12/31/2016 DISCHARGE DIAGNOSES: 1. Acute gastrointestinal bleed secondary to duodenal ulcer with visible blood vessel. 2. Subclavian stenosis of around 50%. 3. Hypertension. 4. Anemia. CONSULTATIONS: Gastroenterology Department, Dr. Catalan, and Surgery Department, Dr. Tracy. HOSPITAL COURSE: This 56-year-old male with a past medical history of hypertension, presented with dizziness and weakness for about 3 days previous to the admission. He was sent by his primary care doctor who had done screening lab work, and he found out that his hemoglobin and hematocrit were low. He advised this patient to go to the ER. He denied any larry hematochezia but he has melena. He had melena and coffee-ground emesis. This patient does use NSAIDs regularly up to 6 Goody Powders a day for arthritis-type pain. Also, he is on Celebrex. Rectal exam revealed dark stools but basically were black. Hemoglobin was 5 and hematocrit was 13. He was admitted to the unit with the diagnosis of acute GI bleed. His blood pressure dropped into the 70s after standing, but he did respond very well to fluids. Gastroenterology department was consulted. They did an upper endoscopy that showed large bulbar ulcer with exposed vessel, large, likely duodenal branch of the gastroduodenal with adherent clot, cauterized. So , it seems that was a long vessel Surgery Department was consulted to keep an eye on this patient in case of rebleed. This patient was doing fine. We kept this patient for 3 days with proton pump inhibitor drip and then we switch it to Protonix q.12 hours. Today, this patient was feeling fine. No symptoms. The vital signs are stable as well as the laboratory. This is why we decided to discharge this patient with a strict followup by gastroenterology in 1 month. Probably, he will need to repeat an upper endoscopy in 3 months to check this ulcer and the basal. This patient was highly advised against NSAIDs. DISCHARGE MEDICATIONS: 1. Centrum Silver 1 tablet p.o. daily. 2. Carafate 1 g p.o. 4 times a day for 4 weeks. 3. Mantador 10 one tablet p.o. every 6 hours as needed for pain. 4. Icar C one tablet p.o. twice a day. 5. Omeprazole 40 mg p.o. twice a day for 3 months. 6. Losartan hydrochlorothiazide 100/25 mg p.o. daily. 7. Amlodipine and methocarbamol daily. FOLLOWUP: Followup by his primary care doctor next week and follow up with Dr. Catalan and/or Dr. Hall in 1 month. PHYSICAL EXAMINATION: Vital Signs: Temperature 98.1 degrees, pulse 67. respiratory rate 12, blood pressure 114/67, oxygen saturation 98 on room air. HEENT: Head normocephalic. No trauma. PERRLA. Neck supple. No JVD. No masses. Central trachea. Chest clear to auscultation. No wheezing. No rales. Abdomen soft, nontender, nondistended. No hepatosplenomegaly. Extremities No edema. No clubbing. No cyanosis. Neurologic: The patient is alert and oriented x3. No focal neurological deficits. LABORATORY: WBC 9.6, hemoglobin 7.1, hematocrit 22.4, platelets 283,000. Sodium 140, potassium 3.1 chloride 104, bicarbonate 28. BUN 11, creatinine 0.6, glucose 102, calcium 8.2. Pending studies at the moment of discharge: None. Time discharging this patient: 35 minutes. cc: Clif Yang MD MTDJohn
== END 2016-12-31 13:34 | disposition home or self-care (01) ==
LOC: P.ED 12:20 → ICU 14:34 → SUATTDRO 14:34 → 3N 12-30 10:19
PROVIDERS: ATTEND Internal Medicine
PROC: EN.HEAT (2016-12-29 00:28)